=== PATIENT | female | born 1995 | race American Indian/Alaskan Native ===

== ENCOUNTER 2016-05-15 09:38 | Emergency (ER) | payer SELFPAY ==
[2016-05-15 11:01] VITALS: BP 143/78
[2016-05-15] MEDS ORDERED: DECADRON IM ONE (11:23)
[2016-05-15] MEDS ORDERED: TORADOL IM ONE (11:24)
--- NOTE | 2016-05-15 11:24 | Emergency Department Report ---
ED ENT HPI - General Chief complaint: Sore Throat Stated complaint: STREP THROAT Time Seen by Provider: 05/15/16 11:18 Source: patient Mode of arrival: Ambulatory Limitations: No Limitations - History of Present Illness Initial comments: 20 y/o female complain of sore throat x 3 days complaint: sore throat Onset/Timin -: days(s) Location: throat Severity: moderate Severity scale (0 -10): 5 Quality: aching Consistency: constant Improves with: none Worsens with: swallowing Associated Symptoms: fever, sore throat - Related Data Previous Rx's Medication Instructions Recorded Last Taken Type Acetaminophen with Codeine 120 ml PO TID #120 oz 05/15/16 Unknown Rx [Acetaminophen-Codeine ORAL LIQ] Penicillin Vk [Veetids TAB] 250 mg PO QID #28 tablet 05/15/16 Unknown Rx Allergies Allergy/AdvReac Type Severity Reaction Status Date / Time No Known Allergies Allergy Unverified 05/15/16 10:59 ED Dental HPI - General Chief complaint: Sore Throat Stated complaint: STREP THROAT Time Seen by Provider: 05/15/16 11:18 Source: patient Mode of arrival: Ambulatory Limitations: No Limitations - Related Data Previous Rx's Medication Instructions Recorded Last Taken Type Acetaminophen with Codeine 120 ml PO TID #120 oz 05/15/16 Unknown Rx [Acetaminophen-Codeine ORAL LIQ] Penicillin Vk [Veetids TAB] 250 mg PO QID #28 tablet 05/15/16 Unknown Rx Allergies Allergy/AdvReac Type Severity Reaction Status Date / Time No Known Allergies Allergy Unverified 05/15/16 10:59 ED Review of Systems ROS: Stated complaint: STREP THROAT Other details as noted in HPI Constitutional: denies: chills, fever Eyes: denies: eye pain, eye discharge, vision change ENT: denies: ear pain Respiratory: denies: cough, shortness of breath, wheezing Cardiovascular: denies: chest pain, palpitations Endocrine: no symptoms reported Gastrointestinal: denies: abdominal pain, nausea, diarrhea Genitourinary: denies: urgency, dysuria, discharge Musculoskeletal: denies: back pain, joint swelling, arthralgia Skin: denies: rash, lesions Neurological: denies: headache, weakness, paresthesias Psychiatric: denies: anxiety, depression Hematological/Lymphatic: denies: easy bleeding, easy bruising ED Past Medical Hx - Past Medical History Previous Medical History?: No - Surgical History Past Surgical History?: No - Social History Smoking Status: Never Smoker Substance Use Type: None - Medications Home Medications: Home Medications Medication Instructions Recorded Confirmed Last Taken Type Acetaminophen with Codeine 120 ml PO TID #120 oz 05/15/16 Unknown Rx [Acetaminophen-Codeine ORAL LIQ] Penicillin Vk [Veetids TAB] 250 mg PO QID #28 tablet 05/15/16 Unknown Rx ED Physical Exam - General Limitations: No Limitations General appearance: alert, in no apparent distress - Head Head exam: Present: atraumatic, normocephalic - Eye Eye exam: Present: normal appearance - ENT ENT exam: Present: mucous membranes moist - Expanded ENT Exam Expanded Throat exam: Positive: tonsillar erythema, tonsillomegaly, tonsillar exudate - Neck Neck exam: Present: normal inspection - Respiratory Respiratory exam: Present: normal lung sounds bilaterally. Absent: respiratory distress - Cardiovascular Cardiovascular Exam: Present: regular rate, normal rhythm. Absent: systolic murmur, diastolic murmur, rubs, gallop - GI/Abdominal GI/Abdominal exam: Present: soft, normal bowel sounds - Extremities Exam Extremities exam: Present: normal inspection - Back Exam Back exam: Present: normal inspection - Neurological Exam Neurological exam: Present: alert, oriented X3 - Psychiatric Psychiatric exam: Present: normal affect, normal mood - Skin Skin exam: Present: warm, dry, intact, normal color. Absent: rash ED Course Vital Signs 05/15/16 05/15/16 10:59 11:33 Temperature 98.2 F Pulse Rate 114 H Respiratory 18 18 Rate Blood Pressure 143/78 O2 Sat by Pulse 97 Oximetry ED Medical Decision Making - Medical Decision Making pharyngitis negative strep A Critical care attestation.: If time is entered above; I have spent that time in minutes in the direct care of this critically ill patient, excluding procedure time. ED Disposition Clinical Impression: Pharyngitis Qualifiers: Pharyngitis/tonsillitis etiology: unspecified etiology Qualified Code(s): J02.9 - Acute pharyngitis, unspecified Disposition: DISCHARGED TO HOME OR SELFCARE Is pt being admited?: No Does the pt Need Aspirin: No Condition: Stable Instructions: Pharyngitis (ED) Prescriptions: Acetaminophen with Codeine [Acetaminophen-Codeine ORAL LIQ] 120 ml PO TID #120 oz Penicillin Vk [Veetids TAB] 250 mg PO QID #28 tablet Referrals: PRIMARY CARE, [Primary Care Provider] - 3-5 Days Forms: Work/School Release Form(ED) Time of Disposition: 12:14
== END 2016-05-15 12:22 | disposition home or self-care (01) ==
LOC: ED 09:38
DX: J02.9 Acute pharyngitis, unspecified (principal)
CPT/HCPCS: 87116; 87430; 96372; 99282; J1100; J1885

== ENCOUNTER 2017-04-03 11:40 | Emergency (ER) | payer SELFPAY ==
[2017-04-03 12:44] VITALS: BP 127/71
--- NOTE | 2017-04-03 14:48 | Emergency Department Report ---
Minor Respiratory - HPI Chief Complaint: Upper Respiratory Infection Stated Complaint: FLU LIKE SYMPTOMS Time Seen by Provider: 04/03/17 14:38 Duration: 5 Days Severity: mild Minor Respiratory: Yes Rhinorrhea, Yes Able to Tolerate Fluids, Yes Cough, Yes Fever, No Sore Throat, No Ear Pain, No Sick Contacts, No Hemoptysis, No Chest Pain, No Shortness of Breath Other History: Patient is a 21-year-old Female who is presenting with flulike symptoms for approximately 5 days. ED Review of Systems ROS: Stated complaint: FLU LIKE SYMPTOMS Other details as noted in HPI Comment: All other systems reviewed and negative ED Past Medical Hx - Past Medical History Previous Medical History?: No - Surgical History Past Surgical History?: No - Social History Smoking Status: Never Smoker Substance Use Type: Marijuana - Medications Home Medications: Home Medications Medication Instructions Recorded Confirmed Last Taken Type Acetaminophen with Codeine 120 ml PO TID #120 oz 05/15/16 Unknown Rx [Acetaminophen-Codeine ORAL LIQ] Penicillin Vk [Veetids TAB] 250 mg PO QID #28 tablet 05/15/16 Unknown Rx Benzonatate [Tessalon Perles] 100 mg PO Q8HR #12 capsule 04/03/17 Unknown Rx HYDROcodone/ACETAMINOPHEN [Linneus 1 each PO Q6HR 3 Days tablet 04/03/17 Unknown Rx 5-325 Tablet] predniSONE [Deltasone] 20 mg PO QDAY #5 tab 04/03/17 Unknown Rx Minor Respiratory Exam - Exam General: Vital signs noted. No distress. Alert and acting appropriately. HEENT: Yes Moist Mucous Membranes, No Pharyngeal Erythema, No Pharyngeal Exudates, No Rhinorrhea, No Conjuctival Injection, No Frontal Tenderness, No Maxillary Tenderness Ear: Neither TM Bulge, Neither TM Erythema, Neither EAC Pain, Neither EAC Discharge Neck: Yes Supple, No Adenopathy Lungs: Yes Good Air Exchange, No Wheezes, No Ronchi, No Stridor, No Cough, No Labored Respirations, No Retractions, No Use of Accessory Muscles, No Other Abnormal Lung Sounds Heart: Yes Regular, No Murmur Abdomen: Yes Normal Bowel Sounds, No Tenderness, No Peritoneal Signs Skin: No Rash, No Edema Neurologic: Alert and oriented, no deficits. Musculoskeletal: Unremarkable. ED Course Vital Signs 04/03/17 12:41 Temperature 99.8 F H Pulse Rate 88 Respiratory 18 Rate Blood Pressure 127/71 O2 Sat by Pulse 99 Oximetry Critical care attestation.: If time is entered above; I have spent that time in minutes in the direct care of this critically ill patient, excluding procedure time. ED Disposition Clinical Impression: Flu-like symptoms Disposition: DC-01 TO HOME OR SELFCARE Is pt being admited?: No Does the pt Need Aspirin: No Condition: Stable Instructions: Influenza (ED) Prescriptions: Benzonatate [Tessalon Perles] 100 mg PO Q8HR #12 capsule HYDROcodone/ACETAMINOPHEN [Linneus 5-325 Tablet] 1 each PO Q6HR 3 Days tablet predniSONE [Deltasone] 20 mg PO QDAY #5 tab Referrals: PRIMARY CARE,MD [Primary Care Provider] - 3-5 Days
== END 2017-04-03 14:51 | disposition home or self-care (01) ==
LOC: ED 11:40
DX: R05 Cough (principal); R50.9 Fever, unspecified; F12.10 Cannabis abuse, uncomplicated
CPT/HCPCS: 99282

== ENCOUNTER 2018-12-04 11:28 | Emergency (ER) | payer SELFPAY ==
[2018-12-04 11:38] VITALS: BP 133/83
--- NOTE | 2018-12-04 11:41 | Emergency Department Report ---
Stated Complaint: VAGINAL DISCOMFORT Time Seen by Provider: 12/04/18 11:35 - HPI History of Present Illness: Vaginal discharge for 4 days. No abdominal pain. Lmp 11/04/18. No fevers, no n/v. no bleeding. NKDA. No med. PCP none. - Exam Physical Exam: AxO times 3 NAD Vitals are stable. RRR CTA, Abd normal bowel sounds no tenderness to palpate. MSE screening note: Focused history and physical exam performed. Due to findings the following was ordered: referral to [facility]. ED Disposition for MSE Disposition: MED SCREENING EXAM-LEFT Is pt being admited?: No Does the pt Need Aspirin: No Condition: Stable Referrals: [facility] [Outside] - 3-5 Days [facility] [Outside] - 3-5 Days [facility] [Provider Group] - 3-5 Days
== END 2018-12-04 12:00 | disposition left against medical advice (07) ==
LOC: ED 11:28
DX: N89.8 Other specified noninflammatory disorders of vagina (principal); Z53.21 Procedure and treatment not carried out due to patient leaving prior to being seen by health care provider